=== PATIENT | male | born 1955 | race Caucasian/White ===

== ENCOUNTER 2016-07-21 09:12 | Day surgery (SDC) | payer BC ==
[~2016-07-21 09:12] MED LIST: CPAP; FLOMAX0.4 M1 PO; NASONEX17 G1; PROSCAR5 M1 PO; SAW PALMETTO500 M1 PO; SILDENAFIL20 M2 PO
== END 2016-07-21 16:50 ==
LOC: SHSC 09:12 → ORW 11:59 → PACU 13:59 → SHSC 14:50
PROC: 0TBB4ZZ Excision of Bladder, Percutaneous Endoscopic Approach (ICD-10-PCS; principal; 2016-07-21)
DX: Q64.4 Malformation of urachus (principal); M17.10 Unilateral primary osteoarthritis, unspecified knee; G47.30 Sleep apnea, unspecified; Z98.890 Other specified postprocedural states
CPT/HCPCS: J1956; J7030